=== PATIENT | female | born 1985 | race Caucasian/White ===

== ENCOUNTER 2020-08-30 15:20 | Emergency (ER) | payer BC ==
[2020-08-30] MEDS ORDERED: Ketorolac 30 MG/ML SDV IVPUSH ONE ×2 (15:43→16:10)
[2020-08-30] MEDS ORDERED: Sodium Chloride 0.9% 1,000 ML IV ONE (15:43)
[2020-08-30] MEDS ORDERED: Ondansetron 4 MG/2 ML SDV IVPUSH ONE (15:44)
--- NOTE | 2020-08-30 15:45 | PCM.SN.2 ---
- Free Text/Narrative Note: Heart rate = 38 bpm, sius bradycardia, normal QRS interval, no STEMI. EKG and rhythm strip interpreted by me at 1538
[2020-08-30] MEDS ORDERED: Atropine 0.1 MG/ML 10 ML Syringe IVPUSH ONE (15:46)
[2020-08-30 16:07] LABS: BLOOD UREA NITROGEN,BUN 16 mg/dL (7.0-18.0); CARBON DIOXIDE,CO2 27.5 mmol/L (21.0-32.0); CHLORIDE,CL 105 mmol/L (98-107); GLUCOSE RANDOM 138 mg/dL (74-106); LIPASE 107 U/L (73-393); POTASSIUM,K 3.5 mmol/L (3.5-5.1); SODIUM,NA 141 mmol/L (136-145)
[2020-08-30 17:00] LABS: CORONAVIRUS COVID-19 NAA NEGATIVE (NEGATIVE); INFLUENZA A NAA NEGATIVE (NEGATIVE); INFLUENZA B NAA NEGATIVE (NEGATIVE)
--- NOTE | 2020-08-30 17:04 | CR ---
INDICATION: Syncope. TECHNIQUE: Chest 1 view Comparison: None Findings: Cardiomediastinal silhouette is unremarkable. No focal lung consolidation, pleural effusion or pneumothorax. Bones are unremarkable. Impression: No acute cardiopulmonary abnormality. Dictated by Murphy Ayala MD @ Aug 30 2020 5:02PM Signed by Dr. Murphy Ayala @ Aug 30 2020 5:03PM
--- NOTE | 2020-08-30 17:59 | EDM.PDOC ---
ED HPI GENERAL MEDICAL PROBLEM - General Chief Complaint: Syncope Stated Complaint: SYNCOPE Time Seen by Provider: 08/30/20 15:28 Source of Information: Reports: Patient History Limitations: Reports: No Limitations - History of Present Illness INITIAL COMMENTS - FREE TEXT/NARRATIVE: HISTORY AND PHYSICAL: History of present illness: Is a 35-year-old female resents emergency room today with concern of a syncopal event that occurred just prior to arrival to the ED. Patient states that she began feeling as though she was going to lose consciousness so laid down on the floor. Patient states that she believes she lost consciousness for a brief second and woke up feeling a little bit nauseous. Patient states she just started her menstrual cycle today and has had a little bit heavier bleeding using 2 regular tampons today. Patient states that she has had a syncopal event before when she was 17 years old and has seen a [facility] for this before with testing that was unremarkable according to patient. She denies any other health history or any other symptoms or concerns. States she did not hit her head as she was able to lower herself to the floor. Patient denies fever, chills, chest pain, shortness of breath, or cough. Denies headache, neck stiff ness, change in vision. Denies nausea, vomiting, abdominal pain, diarrhea, constipation, or dysuria. Has not noted any blood in urine or stool. Patient has been eating and drinking appropriately. Review of systems: As per history of present illness and below otherwise all systems reviewed and negative. Past medical history: As per history of present illness and as reviewed below otherwise noncontributory. Surgical history: As per history of present illness and as reviewed below otherwise noncontributory. Social history: See social history for further information Family history: As per history of present illness and as reviewed below otherwise noncontributory. Physical exam: General: Patient is alert, oriented, and in no acute distress. Patient laying comfortably on exam table, pale and tired appearing. Bradycardia 38-50s on my exam. Otherwise vitally stable. HEENT: Atraumatic, normocephalic, pupils equal and reactive bilaterally, negative for conjunctival pallor or scleral icterus, mucous membranes moist, TMs normal bilaterally, throat clear, neck supple, nontender, trachea midline. No drooling or trismus noted. No meningeal signs. No hot potato voice noted. Lungs: Clear to auscultation, breath sounds equal bilaterally, chest nontender. Heart: S1S2, regular rate and rhythm without overt murmur Abdomen: Soft, nondistended, nontender. Negative for masses or hepatosplenomegaly. Negative for costovertebral tenderness. Pelvis: Stable nontender. Genitourinary: Deferred. Rectal: Deferred. Skin: Intact, warm, dry. No lesions or rashes noted. Extremities: Atraumatic, negative for cords or calf pain. Neurovascular unremarkable. Neuro: Awake, alert, oriented. Cranial nerves II through XII unremarkable. Cerebellum unremarkable. Motor and sensory unremarkable throughout. Exam nonfocal. Notes: Patient does state that her heart rate does run low in the 40s-50s per her baseline and she has had this evaluated by cardiology prior including tilt table testing and does not feel this is related to her symptoms today. Upon reevaluation of patient, she is no longer pale and is well appearing. HR 45-50s consistently on reexamination. Admission for observation was offered to patient but she declines at this time. All risks vs benefits discussed with patient and expresses understanding. ZioPatch/Holter monitor was placed on patient in the ED with referral to cardiology for further evaluation. Discussed the importance for follow-up with cardiology and her primary care provider. Strict return precautions discussed. Voices understanding and is agreeable to plan of care. Denies any further questions or concerns at this time. Diagnostics: EKG, CBC, CMP, UA, Serum hcg, Orthostatic vitals, CXR, Trop Therapeutics: NS, Zofran, Toradol (Patient declines atropine as she does not feel is related to her symptoms and wants to see how other therapeutics will do for her symptoms--all risks vs benefits discussed and expresses understanding) Prescription: ZioPatch Impression: Syncope Bradycardia Plan: 1. Keep the ZioPatch on as directed and as discussed. Follow up with the [facility], Dr. Montes as discussed. Also follow up with your primary care provider as discussed. 2. Return to the ED as needed and as discussed. Definitive disposition and diagnosis as appropriate pending reevaluation and review of above. abdominal Pain Score (Numeric/FACES): 4 - Related Data Allergies Allergy/AdvReac Type Severity Reaction Status Date / Time Sulfa (Sulfonamide Allergy Rash Verified 08/30/20 15:56 Antibiotics) Home Meds: Home Meds Amphetamine/Dextroamphetamine [Adderall XR] 15 mg PO DAILY 08/30/20 [History] Past Medical History - Past Health History Medical/Surgical History: Denies Medical/Surgical History Psychiatric History: Reports: ADHD - Past Surgical History Other Cardiovascular Surgeries/Procedures: low heart rate Social & Family History - Tobacco Use Tobacco Use Status *Q: Never Tobacco User - Recreational Drug Use Recreational Drug Use: No ED ROS GENERAL - Review of Systems Review Of Systems: Comprehensive ROS is negative, except as noted in HPI. ED EXAM, GENERAL - Physical Exam Exam: See Below (see dictation) Course - Vital Signs Last Recorded V/S: Last Vital Signs Temp 97.3 F 08/30/20 15:20 Pulse 56 L 08/30/20 17:52 Resp 16 08/30/20 15:28 BP 113/65 08/30/20 17:52 Pulse Ox 97 08/30/20 17:52 - Orders/Labs/Meds Labs: Laboratory Tests 08/30/20 08/30/20 08/30/20 Range/Units 15:35 15:35 15:35 WBC 8.39 (4.0-11.0) K/uL RBC 4.64 (4.30-5.90) M/uL Hgb 14.5 (12.0-16.0) g/dL Hct 43.9 (36.0-46.0) % MCV 94.6 (80.0-98.0) fL MCH 31.3 (27.0-32.0) pg MCHC 33.0 (31.0-37.0) g/dL RDW Std Deviation 47.0 (28.0-62.0) fl RDW Coeff of Umer 14 (11.0-15.0) % Plt Count 224 (150-400) K/uL MPV 11.60 (7.40-12.00) fL Neut % (Auto) 54.7 (48.0-80.0) % Lymph % (Auto) 37.7 (16.0-40.0) % [place] % (Auto) 6.3 (0.0-15.0) % Eos % (Auto) 1.1 (0.0-7.0) % Baso % (Auto) 0.2 (0.0-1.5) % Neut # (Auto) 4.6 (1.4-5.7) K/uL Lymph # (Auto) 3.2 H (0.6-2.4) K/uL [place] # (Auto) 0.5 (0.0-0.8) K/uL Eos # (Auto) 0.1 (0.0-0.7) K/uL Baso # (Auto) 0.0 (0.0-0.1) K/uL Nucleated RBC % 0.0 /100WBC Nucleated RBCs # 0 K/uL Sodium 141 (136-145) mmol/L Potassium 3.5 (3.5-5.1) mmol/L Chloride 105 (98-107) mmol/L Carbon Dioxide 27.5 (21.0-32.0) mmol/L BUN 16 (7.0-18.0) mg/dL Creatinine 1.0 (0.6-1.0) mg/dL Est Cr Clr Drug Dosing TNP Estimated GFR (MDRD) > 60.0 ml/min Glucose 138 H (74-106) mg/dL Calcium 8.9 (8.5-10.1) mg/dL Total Bilirubin 0.6 (0.2-1.0) mg/dL AST 11 L (15-37) IU/L ALT 19 (14-63) IU/L Alkaline Phosphatase 46 (46-116) U/L Troponin I < 0.050 (0.000-0.056) ng/mL Total Protein 6.8 (6.4-8.2) g/dL Albumin 3.8 (3.4-5.0) g/dL Globulin 3.0 (2.6-4.0) g/dL Albumin/Globulin Ratio 1.3 (0.9-1.6) Lipase 107 (73-393) U/L HCG, Qual NEGATIVE (NEG) Influenza Type A RNA (NEGATIVE) Influenza Type B RNA (NEGATIVE) SARS-CoV-2 RNA (KARLI) (NEGATIVE) Blood Type Antibody Screen 08/30/20 08/30/20 Range/Units 15:55 16:15 WBC (4.0-11.0) K/uL RBC (4.30-5.90) M/uL Hgb (12.0-16.0) g/dL Hct (36.0-46.0) % MCV (80.0-98.0) fL MCH (27.0-32.0) pg MCHC (31.0-37.0) g/dL RDW Std Deviation (28.0-62.0) fl RDW Coeff of Umer (11.0-15.0) % Plt Count (150-400) K/uL MPV (7.40-12.00) fL Neut % (Auto) (48.0-80.0) % Lymph % (Auto) (16.0-40.0) % [place] % (Auto) (0.0-15.0) % Eos % (Auto) (0.0-7.0) % Baso % (Auto) (0.0-1.5) % Neut # (Auto) (1.4-5.7) K/uL Lymph # (Auto) (0.6-2.4) K/uL [place] # (Auto) (0.0-0.8) K/uL Eos # (Auto) (0.0-0.7) K/uL Baso # (Auto) (0.0-0.1) K/uL Nucleated RBC % /100WBC Nucleated RBCs # K/uL Sodium (136-145) mmol/L Potassium (3.5-5.1) mmol/L Chloride (98-107) mmol/L Carbon Dioxide (21.0-32.0) mmol/L BUN (7.0-18.0) mg/dL Creatinine (0.6-1.0) mg/dL Est Cr Clr Drug Dosing Estimated GFR (MDRD) ml/min Glucose (74-106) mg/dL Calcium (8.5-10.1) mg/dL Total Bilirubin (0.2-1.0) mg/dL AST (15-37) IU/L ALT (14-63) IU/L Alkaline Phosphatase (46-116) U/L Troponin I (0.000-0.056) ng/mL Total Protein (6.4-8.2) g/dL Albumin (3.4-5.0) g/dL Globulin (2.6-4.0) g/dL Albumin/Globulin Ratio (0.9-1.6) Lipase (73-393) U/L HCG, Qual (NEG) Influenza Type A RNA NEGATIVE (NEGATIVE) Influenza Type B RNA NEGATIVE (NEGATIVE) SARS-CoV-2 RNA (KARLI) NEGATIVE (NEGATIVE) Blood Type A POSITIVE Antibody Screen NEGATIVE Meds: Medications Discontinued Medications Generic Name Dose Route Start Last Admin Trade Name Drea PRN Reason Stop Dose Admin Atropine Sulfate 0.5 mg 08/30/20 15:46 Atropine 0.1 Mg/Ml IVPUSH 08/30/20 15:47 ONETIME ONE Sodium Chloride 1,000 mls @ 999 mls/hr 08/30/20 15:43 08/30/20 15:56 Normal Saline IV 08/30/20 16:43 999 mls/hr BOLUS ONE Administration Ketorolac Tromethamine 30 mg 08/30/20 15:43 08/30/20 16:18 Toradol IVPUSH 08/30/20 15:44 Not Given ONETIME ONE Ketorolac Tromethamine 30 mg 08/30/20 16:10 08/30/20 16:16 Toradol IVPUSH 08/30/20 16:11 30 mg ONETIME ONE Administration Ondansetron HCl 4 mg 08/30/20 15:44 08/30/20 15:56 Zofran IVPUSH 08/30/20 15:45 4 mg ONETIME ONE Administration Departure - Departure Time of Disposition: 17:46 Disposition: Home, Self-Care 01 Clinical Impression: Bradycardia Syncope Qualifiers: Syncope type: unspecified Qualified Code(s): R55 - Syncope and collapse - Discharge Information Instructions: Bradycardia, Adult, Syncope, [id number] Referrals: PCP,None [Primary Care Provider] - Forms: ED Department Discharge Additional Instructions: The following information is given to patients seen in the emergency department who are being discharged to home. This information is to outline your options for follow-up care. We provide all patients seen in our emergency department with a follow-up referral. The need for follow-up, as well as the timing and circumstances, are variable depending upon the specifics of your emergency department visit. If you don't have a primary care physician on staff, we will provide you with a referral. We always advise you to contact your personal physician following an emergency department visit to inform them of the circumstance of the visit and for follow-up with them and/or the need for any referrals to a consulting specialist. The emergency department will also refer you to a specialist when appropriate. This referral assures that you have the opportunity for follow-up care with a specialist. All of these measure are taken in an effort to provide you with optimal care, which includes your follow-up. Under all circumstances we always encourage you to contact your private physician who remains a resource for coordinating your care. When calling for follow-up care, please make the office aware that this follow-up is from your recent emergency room visit. If for any reason you are refused follow-up, please contact the [facility] Emergency Department at and asked to speak to the emergency department charge nurse. [facility] Cardiology, Dr. Waite [address] [place] [id number] 1. Keep the ZioPatch on as directed and as discussed. Follow up with the [facility], Dr. Montes as discussed. Also follow up with your primary care provider as discussed. 2. Return to the ED as needed and as discussed. Sepsis Event Note (ED) - Evaluation Sepsis Screening Result: No Definite Risk - Focused Exam Vital Signs: Vital Signs Temp Pulse Resp BP Pulse Ox 08/30/20 17:52 56 L 113/65 97 08/30/20 17:37 63 113/70 99 08/30/20 17:22 45 L 110/65 100 08/30/20 17:07 48 L 110/71 100 08/30/20 16:52 46 L 117/72 100 08/30/20 16:37 48 L 118/64 100 08/30/20 15:28 47 L 16 143/88 H 93 L 08/30/20 15:20 97.3 F 38 L 18 111/65 97
== END 2020-08-30 18:30 | disposition home or self-care (01) ==
LOC: MW.ED 15:20
DX: R55 Syncope and collapse (principal); R00.1 Bradycardia, unspecified; Z20.822 Contact with and (suspected) exposure to COVID-19; Z88.2 Allergy status to sulfonamides
CPT/HCPCS: 0240U; 36415; 71045; 80053; 83690; 84484; 84703; 85025; 86850; 86900; 86901; 93005; 96374; 96375; 99284; J1885; J2405; J7030; 93010; 99283